=== PATIENT | female | born 1990 | race Caucasian/White ===

== ENCOUNTER 2018-03-21 14:31 | Emergency (ER) | payer MEDICAID ==
[2018-03-21 14:32] VITALS: BMI 25.2
[2018-03-21 14:48] VITALS: BP 113/78; PULSE 102; RESP 18; TEMP 97.7; O2SAT 100
--- NOTE | 2018-03-21 16:20 | C.PDOC ---
History Of Present Illness 27 y/o female presents to ER complaining of painful hemorrhoid x1 month. Patient was seen by welt insole channeler who prescribed her with lidocaine 2.5% and prilocane 2.5% cream that she has been using 2x a day but with no relief. Last BM was this morning. Denies constipation, nausea, or vomiting. Time Seen by Provider: 03/21/18 15:37 Chief Complaint (Nursing): GI Problem History Per: Patient History/Exam Limitations: no limitations Onset/Duration Of Symptoms: Days Current Symptoms Are (Timing): Still Present Past Medical History Reviewed: Historical Data, Nursing Documentation, Vital Signs Vital Signs: Last Vital Signs Temp 97.7 F 03/21/18 14:46 Pulse 102 H 03/21/18 14:46 Resp 18 03/21/18 14:46 BP 113/78 03/21/18 14:46 Pulse Ox 100 03/21/18 14:46 - [email or web address] Procedures EXTRACTION OF PRODUCTS OF CONCEPTION, OTHER, VIA OPENING (01/16/16) REPAIR PERINEUM SKIN, EXTERNAL APPROACH (01/16/16) Family History: States: No Known Family Hx - Social History Hx Tobacco Use: No Hx Alcohol Use: No Hx Substance Use: No - Immunization History Hx Tetanus Toxoid Vaccination: No Hx Influenza Vaccination: No Hx Pneumococcal Vaccination: No Review Of Systems Gastrointestinal: Positive for: Other (hemorrhoid). Negative for: Nausea, Vomiting, Diarrhea, Constipation Physical Exam - Physical Exam Appears: Non-toxic, No Acute Distress Skin: Warm, Dry Head: Atraumatic, Normacephalic Eye(s): bilateral: Normal Inspection Oral Mucosa: Moist Neck: Supple Cardiovascular: Rhythm Regular, No Murmur Respiratory: Normal Breath Sounds, No Rales, No Rhonchi, No Wheezing Gastrointestinal/Abdominal: Soft, No Tenderness Rectal: Hemorrhoids (external), Other (No rectal trauma or bleeding) Extremity: Bilateral: Atraumatic Neurological/Psych: Oriented x3, Normal Speech Gait: Steady ED Course And Treatment O2 Sat by Pulse Oximetry: 100 (RA) Pulse Ox Interpretation: Normal Medical Decision Making Medical Decision Making: Patient will be discharged home with prescription for colace, preparation H, and anusol. Disposition Counseled Patient/Family Regarding: Diagnosis, Need For Followup, Rx Given - Disposition Referrals: Nicolás Rain MD [Staff Provider] - [facility] [Outside] Disposition: HOME/ ROUTINE Disposition Time: 16:17 Condition: STABLE Additional Instructions: FOLLOW UP WITH YOUR 3RD MATE OR IF NOT AVAILABLE WITH DR. RAIN ON THURSDAY FOR RE-EVALUATION. DRINK PLENTY OF WATER AND EAT FIBER RICH FOOD. IF SYMPTOMS GET WORSE OR ANY NEW CONCERNING SYMPTOMS DEVELOP RETURN TO E.D. Prescriptions: Hydrocortisone 2.5% (Rectal) [Anusol-HC] 1 apful OR QID PRN #1 tube PRN Reason: Pain, Moderate (4-7) Docusate [Colace] 1 cap PO TID #42 cap Phenyleph/Mineral Oil/Petrolat [Preparation H 0.25%-3%] 1 oin TP QID PRN #1 tu PRN Reason: Pain, Moderate (4-7) Instructions: Hemorrhoids (DC) Forms: [email or web address] (Wolof) - Clinical Impression Clinical Impression: Hemorrhoids - PA / TUBE FITTER / Resident Statement MD/DO has reviewed & agrees with the documentation as recorded. - Scribe Statement The provider has reviewed the documentation as recorded by the Scribziggy Miranda All medical record entries made by the Jefibziggy were at my direction and personally dictated by me. I have reviewed the chart and agree that the record accurately reflects my personal performance of the history, physical exam, medical decision making, and the department course for this patient. I have also personally directed, reviewed, and agree with the discharge instructions and disposition.
== END 2018-03-21 16:53 | disposition home or self-care (01) ==
LOC: C.ER 14:31
DX: K64.4 Residual hemorrhoidal skin tags (principal)

== ENCOUNTER 2018-04-30 19:03 | Emergency (ER) | payer MEDICAID ==
[2018-04-30 19:04] VITALS: BMI 25.2
[2018-04-30 19:28] VITALS: O2SAT 98
[2018-04-30 19:46] LABS: BASO % 0.5 % (0.0-2.0); LYMPH % 13.9 % (20.0-40.0); MEAN CELL VOLUME 89.9 fL (81.0-99.0); MEAN CORPUSCULAR HEMOGLOBIN 30.6 pg (27.0-31.0); MEAN CORPUSCULAR HGB CONC 34.1 g/dL (33.0-37.0); MEAN PLATELET VOLUME 8.9 fL (7.2-11.7); MONO # 0.4 K/uL (0.0-0.8); MONO % 6.1 % (0.0-10.0); NEUT # 5.9 K/uL (1.8-7.0); NEUT % 79.5 % (50.0-75.0); RBC 4.57 Mil/uL (3.80-5.20); RED CELL DISTRIBUTION WIDTH 13.1 % (11.5-14.5); WHITE BLOOD COUNT 7.4 K/uL (4.8-10.8)
[2018-04-30] MEDS: Sodium Chloride 0.9% 1,000 ML IV ONE ×2 (19:50→21:00)
[2018-04-30 19:53] LABS: SQUAMOUS EPITHIAL 2 /hpf (0-5); URINE BACTERIA RARE (<OCC); URINE BILIRUBIN NEGATIVE (NEGATIVE); URINE BLOOD NEGATIVE (NEGATIVE); URINE CLARITY Clear (Clear); URINE COLOR Yellow (YELLOW); URINE GLUCOSE (UA) NORMAL (Normal); URINE LEUKOCYTE ESTERASE NEG Leu/uL (Negative); URINE PROTEIN NEGATIVE (NEGATIVE); URINE UROBILINOGEN NORMAL mg/dL (0.2-1.0)
[2018-04-30 19:54] LABS: HCG,QUALITATIVE URINE NEGATIVE (NEGATIVE)
[2018-04-30 19:58] LABS: ALB/GLOB RATIO 1.2 (1.0-2.1); ALBUMIN 4.3 g/dL (3.5-5.0); ALT/SGPT 17 U/L (9-52); AST/SGOT 27 U/L (14-36); BLOOD UREA NITROGEN 5 mg/dL (7-17); CALCIUM 8.5 mg/dl (8.6-10.4); GFR NON-AFRICAN AMERICAN > 60
[2018-04-30] MEDS ORDERED: Iodixanol 320 MG/ML 100 ML BOTTLE IV ONE (20:15)
--- NOTE | 2018-04-30 21:27 | C.PDOC ---
History Of Present Illness 27 y/o female pt presents to the ER c/o epigastric pain for x3 days. Associated sx includes mutliple episodes of vomiting and unable to tolerate PO. Pt denies Patient denies chest pain, shortness of breath, headache, fever, chills, cough, nausea, diarrhea, changes in bowel habits, dysuria, hematuria, frequency, flank pain, or vaginal discharge Chief Complaint (Nursing): Abdominal Pain History Per: Patient History/Exam Limitations: no limitations Onset/Duration Of Symptoms: Days (x3) Current Symptoms Are (Timing): Still Present Location Of Pain/Discomfort: Epigastric Past Medical History Reviewed: Historical Data, Nursing Documentation, Vital Signs Vital Signs: Last Vital Signs Temp 99 F 04/30/18 19:26 Pulse 97 H 04/30/18 19:26 Resp 18 04/30/18 19:26 BP 109/76 04/30/18 19:26 Pulse Ox 98 04/30/18 19:26 - [facility] Procedures EXTRACTION OF PRODUCTS OF CONCEPTION, OTHER, VIA OPENING (01/16/16) REPAIR PERINEUM SKIN, EXTERNAL APPROACH (01/16/16) Family History: States: No Known Family Hx - Social History Hx Tobacco Use: No Hx Alcohol Use: No Hx Substance Use: No - Immunization History Hx Tetanus Toxoid Vaccination: No Hx Influenza Vaccination: No Hx Pneumococcal Vaccination: No Review Of Systems Except As Marked, All Systems Reviewed And Found Negative. Constitutional: Negative for: Fever, Chills, Other (no medica issues ) Cardiovascular: Negative for: Chest Pain Respiratory: Negative for: Cough, Shortness of Breath Gastrointestinal: Positive for: Vomiting, Abdominal Pain (epigastric pain ). Negative for: Nausea, Diarrhea Genitourinary: Negative for: Dysuria, Frequency, Hematuria, Vaginal Discharge, Other (changes in bowel habits ) Musculoskeletal: Negative for: Other (flank pain ) Neurological: Negative for: Headache Physical Exam - Physical Exam Appears: Non-toxic, No Acute Distress Skin: Warm, Dry Head: Normacephalic Eye(s): bilateral: Normal Inspection, EOMI Oral Mucosa: Moist Throat: Normal Neck: Normal ROM, Supple Chest: Symmetrical Cardiovascular: Rhythm Regular Respiratory: Normal Breath Sounds Gastrointestinal/Abdominal: Soft, Tenderness (mild epigastric ) Back: No CVA Tenderness Neurological/Psych: Oriented x3, Normal Speech ED Course And Treatment - Laboratory Results Result Diagrams: 04/30/18 19:41 04/30/18 19:41 O2 Sat by Pulse Oximetry: 98 (RA) Pulse Ox Interpretation: Normal Medical Decision Making Medical Decision Making: Impression: mild epigastric tenderness plans: -- CT scan abd&pelvis -- chem labs -- blood work -- pepcid -- IV fluids -- toradol -- zofran -- HCG -- UA CT abd&pelvis Results: Name: MARY KATE OVALLES Exam Date: Apr 30, 2018 8:40:06 PM EST Modality Type: CT\SR Description: CT - ABDOMEN AND PELVIS Gender: F Laterality: Not applicable : 86 Referring Physician: Oseas Bach (DO) EXAM: CT Abdomen and Pelvis with IV contrast CLINICAL HISTORY: Epigastric pain TECHNIQUE: Axial computed tomography images of the abdomen and pelvis with intravenous contrast. CONTRAST: With intravenous contrast. COMPARISON: None provided. FINDINGS: LUNG BASES: The lung bases appear clear. No pleural effusions are seen. LIVER: Right lobe of the liver measures 18.5 cm which either represents a Myrna's lobe variant or hepatomegaly. Correlate clinically. GALLBLADDER AND BILE DUCTS: The gallbladder appears within normal limits. No radioopaque gallstones are seen. No biliary ductal dilatation is evident. PANCREAS: Unremarkable. SPLEEN: The spleen is within normal limits measuring 11.8 cm. ADRENAL GLANDS: Unremarkable. KIDNEYS, URETERS, AND BLADDER: The kidneys appear within normal limits. There is no hydronephrosis or hydroureter. No urinary calculi are seen. STOMACH AND BOWEL: Diffuse stomach wall thickening is identified which could indicate a gastritis. In addition, there are segmental loops of small bowel with wall thickening and luminal narrowing which could indicate an enteritis. Correlate clinically. Consider gastroenterology consultation. APPENDIX: No evidence of acute appendicitis on CT examination. PERITONEUM: No free fluid. No free air. LYMPH NODES: No lymphadenopathy is evident. REPRODUCTIVE: A left ovarian dominant follicle or small cyst is seen measuring 2.2 cm. VASCULATURE: No evidence of abdominal aortic aneurysm. BONES: No aggressive appearing osseous lesion. No acute osseous pathology evident. IMPRESSION: 1. Diffuse stomach wall thickening is identified which could indicate a gastritis. In addition, there are segmental loops of small bowel with wall thickening and luminal narrowing which could indicate an enteritis. Correlate clinically. Consider gastroenterology consultation. 2. A left ovarian dominant follicle or small cyst is seen measuring 2.2 cm. 3. Right lobe of the liver measures 18.5 cm which either represents a Myrna's lobe variant or hepatomegaly. Correlate clinically. 4. The spleen is within normal limits measuring 11.8 cm. Electronically signed on Apr 30, 2018 9:08:21 PM EST by: Virgil Orosco M.D., Certified by [facility] Reassess: Patient is resting comfortably, abdomen remains soft, and patient is tolerating PO. Patient feels comfortable going home. Patient will be discharged home. Disposition - Disposition Referrals: [facility] Jayshree Owens, [Non-Staff] - Disposition: HOME/ ROUTINE Disposition Time: 21:10 Condition: GOOD Additional Instructions: MARY KATE OVALLES, thank you for letting us take care of you today. The emergency medical care you received today was directed at your acute symptoms. If you were prescribed any medication, please fill it and take as directed. It may take s everal days for your symptoms to resolve. Return to the Emergency Department if your symptoms worsen, do not improve, or if you have any other problems. Please contact your doctor or call one of the physicians/clinics you have been referred to that are listed on the Patient Visit Information form that is included in your discharge packet. Bring any paperwork you were given at discharge with you along with any medications you are taking to your follow up visit. Our treatment cannot replace ongoing medical care by a primary care provider outside of the emergency department. Thank you for allowing the [facility] team to be part of your care today. Drink small amount of fluids throughout the day to maintain your hydration. Follow up with your primary care doctor in 3-5 days for re-evaluation and further management. Prescriptions: Famotidine [Pepcid] 20 mg PO BID #14 tab Ondansetron ODT [Zofran ODT] 8 mg PO Q8 PRN #20 odt PRN Reason: Nausea/Vomiting Instructions: Wetzel Diet, Gastritis (DC) Forms: [facility] (Arabic) - Clinical Impression Clinical Impression: Gastritis - Scribe Statement The provider has reviewed the documentation as recorded by the Scribe Vizcarra Do Provider Attestation: All medical record entries made by the Scribe were at my direction and personally dictated by me. I have reviewed the chart and agree that the record accurately reflects my personal performance of the history, physical exam, medical decision making, and the department course for this patient. I have also personally directed, reviewed, and agree with the discharge instructions and disposition.
[2018-04-30 22:02] VITALS: BP 116/79; PULSE 78; RESP 18; TEMP 98
--- NOTE | 2018-05-01 17:39 | CT ---
Date of service: 04/30/2018 PROCEDURE: CT Abdomen and Pelvis with contrast HISTORY: upper abdominal pain COMPARISON: None. TECHNIQUE: Contrast dose: 100 mL Visipaque 320 Radiation dose: Total exam DLP = 565.68 mGy-cm. This CT exam was performed using one or more of the following dose reduction techniques: Automated exposure control, adjustment of the mA and/or kV according to patient size, and/or use of iterative reconstruction technique. FINDINGS: LOWER THORAX: Unremarkable. LIVER: Minimal hepatomegaly. The liver measures 18.9 cm in greatest dimension. No mass. Smooth contour. No biliary dilatation. GALLBLADDER AND BILE DUCTS: Unremarkable. PANCREAS: Unremarkable. No gross lesion or ductal dilatation. SPLEEN: Unremarkable. ADRENALS: Unremarkable. No mass. KIDNEYS AND URETERS: Unremarkable. No hydronephrosis. No solid mass. VASCULATURE: Unremarkable. No aortic aneurysm. No aortic atherosclerotic calcification or mural plaque present. BOWEL: Unremarkable. No obstruction. No gross mural thickening. No gastric mural thickening appreciated. No abnormal bowel loops. APPENDIX: Normal appendix. PERITONEUM: Unremarkable. No free fluid. No free air. LYMPH NODES: Unremarkable. No enlarged lymph nodes. BLADDER: Unremarkable. REPRODUCTIVE: Unremarkable uterus. 2.1 cm left ovarian cyst, presumed physiologic. BONES: No acute fracture. OTHER FINDINGS: None. IMPRESSION: No acute abnormality. Minor findings as above. The preliminary findings for this examination were reported by [facility] at 9:08 p.m. on 04/30/2018. There is discordance of this report with the preliminary findings. No evidence of gastritis. No evidence of enteritis.
== END 2018-04-30 22:02 | disposition home or self-care (01) ==
LOC: C.ER 19:03
DX: K29.70 Gastritis, unspecified, without bleeding (principal)
CPT/HCPCS: 74177; 80053; 81001; 83690; 84703; 85025; 96361; 96374; 96375; 99285; J1885; J2405; J7030; Q9967